=== PATIENT | female | born 1960 | race Caucasian/White ===

== ENCOUNTER 2016-07-24 17:08 | Emergency (ER) | payer BC ==
[2016-07-24 17:09] VITALS: BMI 31.2
[2016-07-24 17:24] VITALS: BP 130/83
[2016-07-24 17:50] VITALS: PULSE 79; RESP 16; TEMP 98.6; O2SAT 99
[2016-07-24] MEDS ORDERED: TDAP Vaccine 0.5 mL Syr IM ONE (18:12)
--- NOTE | 2016-07-24 18:16 | ED PDOC ---
Arrival/HPI - General Chief Complaint: Trauma Time Seen by Provider: 07/24/16 18:11 Historian: Patient - History of Present Illness Narrative History of Present Illness (Text): 07/24/16 18:13 This 55 yo female with pmh lupus, and arthritis presents to this ED c/o left ankle/foot pain x 2 hours. Patient stated while walking downstairs, she missed last steps causing her to twist her left ankle. Patient denies head injury loc, back pain, hip pain, knee pain, dizziness, rocha, diplopia, n/v, or cms. Patient was able to ambulate with mild pain. Time/Duration: 1-3 hours Context: Home Past Medical History - Provider Review Nursing Documentation Reviewed: Yes - Infectious Disease Hx of Infectious Diseases: None - Reproductive Menopause: Yes - Pulmonary Hx Respiratory Disorders: No - Neurological Hx Neurological Disorder: No - HEENT Hx HEENT Disorder: No Other/Comment: WEARS READING GLASSES - Renal Hx Renal Disorder: No - Endocrine/Metabolic Hx Endocrine Disorders: No - Hematological/Oncological Hx Blood Disorders: No - Integumentary Hx Dermatological Disorder: No - Musculoskeletal/Rheumatological Hx Musculoskeletal Disorders: Yes Hx Arthritis: Yes Hx Falls: No - Gastrointestinal Hx Gall Bladder Disease: Yes (CHOLECYSTECTOMY) Hx Gastroesophageal Reflux: Yes - Genitourinary/Gynecological Hx Hematuria: Yes Hx Urinary Tract Infection: Yes (08-20-12) - Psychiatric Hx Psychophysiologic Disorder: No Hx Depression: No Hx Emotional Abuse: No Hx Physical Abuse: No Hx Substance Use: No - Surgical History Hx Cholecystectomy: Yes - Anesthesia Hx Anesthesia: No - Suicidal Assessment Feels Threatened In Home Enviroment: No Family/Social History - Physician Review Nursing Documentation Reviewed: Yes Family/Social History: No Known Family HX Smoking Status: Never Smoked Hx Alcohol Use: No Hx Substance Use: No Allergies/Home Meds Allergies/Adverse Reactions: Allergies No Known Allergies Allergy (Verified 08/20/12 12:53) Home Medications: Home Meds Medication Instructions Recorded Confirmed Hydroxychloroquine Sulfate 200 mg PO BID 08/20/12 07/24/16 [Plaquenil] Review of Systems - Review of Systems Constitutional: Normal. absent: Fatigue, Weight Change, Fevers, Night Sweats Eyes: Normal ENT: Normal Respiratory: Normal Cardiovascular: Normal Gastrointestinal: Normal Genitourinary Female: Normal Musculoskeletal: Other (Left ankle and left foot pain) Skin: Normal Neurological: Normal Endocrine: Normal Hemo/Lymphatic: Normal Psychiatric: Normal Physical Exam Vital Signs Temp Pulse Resp BP Pulse Ox 07/24/16 17:49 98.6 F 79 16 99 07/24/16 17:19 98.5 F 72 18 130/83 100 Temperature: Afebrile Blood Pressure: Normal Pulse: Regular Respiratory Rate: Normal Appearance: Positive for: Well-Appearing, Non-Toxic, Comfortable Pain Distress: None Mental Status: Positive for: Alert and Oriented X 3 - Systems Exam Head: Present: Atraumatic, Normocephalic, Other (no raccoon sign. No aden sign) Pupils: Present: PERRL, Other (no hyphema) Extroacular Muscles: Present: EOMI. No: Entrapment Conjunctiva: Present: Normal Ears: Present: Normal, NORMAL TM, Normal Canal, Other (No hemotympanum). No: Erythema, TM Bulging, Fluid, TM Perf Mouth: Present: Moist Mucous Membranes Pharnyx: Present: Normal. No: ERYTHEMA, TONSILS ENLARGED Nose (External): Present: Atraumatic Nose (Internal): Present: Normal Inspection Neck: Present: Normal Range of Motion, Trachea Midline. No: Meningeal Signs, MIDLINE TENDERNESS Respiratory/Chest: Present: Clear to Auscultation, Good Air Exchange. No: Respiratory Distress, Accessory Muscle Use, Wheezes, Retracting, Tender to Palpation Cardiovascular: Present: Regular Rate and Rhythm, Normal S1, S2. No: Murmurs Abdomen: Present: Normal Bowel Sounds. No: Tenderness, Distention, Peritoneal Signs Back: Present: Normal Inspection. No: CVA Tenderness, Midline Tenderness, Paraspinal Tenderness, Pain with Leg Raise Upper Extremity: Present: Normal Inspection, Normal ROM, Neurovascularly Intact , Capillary Refill < 2s. No: Cyanosis, Edema Lower Extremity: Present: Normal Inspection, NORMAL PULSES, Tenderness ((+) mild tenderness just inferior to left lateral malleoulus. No ecchymosis, swelling, or deformity. Tompson test was negative. No calf tenderness.), Capillary Refill < 2 s. No: Edema, CALF TENDERNESS Neurological: Present: GCS=15, CN II-XII Intact, Speech Normal Skin: Present: Warm, Dry, Normal Color, Abrasion (Small linear abrasion right anterior distal lower leg.). No: Rashes Psychiatric: Present: Alert, Oriented x 3, Normal Insight, Normal Concentration Medical Decision Making ED Course and Treatment: 07/24/16 19:09 Re-evaluation. Patient feels better. Discussed results and plan with patient who expresses understanding. All questions answered and there is agreement with the plan to discharge home with instructions. Patient stable for discharge. Return if symptoms persist or worsen. Patient understand to remove air cast, krissy bandage at bedtime. To keep foot elevated, ice, and rest for at least 5-7 days. To return to emergency if symptoms worsen. Re-evaluation Time: 19:10 Reassessment Condition: Re-examined, Improved - RAD Interpretation Narrative RAD Interpretations (Text): 07/24/16 19:10 Foot x-rays: No Fx . DJD 07/24/16 19:11 Ankle x-rays: no fx DJD Radiology Orders: 07/24/16 18:11 ANKLE LEFT 3 VIEWS ROUTINE [RAD] Stat 07/24/16 18:12 FOOT LEFT 3 VIEWS ROUTINE [RAD] Stat - Medication Orders Current Medication Orders: Discontinued Medications Ibuprofen (Motrin Tab) 400 mg PO STAT STA Stop: 07/24/16 18:13 Last Admin: 07/24/16 19:13 Dose: 400 mg Tetanus/Reduced Diphtheria/Acell Pertussis (Boostrix Vaccine Inj) 0.5 ml IM .ONCE ONE Stop: 07/24/16 18:13 Last Admin: 07/24/16 19:12 Dose: 0.5 ml - Procedure PROCEDURE NOTE (Text): 07/24/16 21:14 I ordered air cast, cane and krissy bandage Disposition/Present on Arrival - Present on Arrival Any Indicators Present on Arrival: No History of DVT/PE: No History of Uncontrolled Diabetes: No Urinary Catheter: No History of Decub. Ulcer: No History Surgical Site Infection Following: None - Disposition Have Diagnosis and Disposition been Completed?: Yes Diagnosis: Foot pain, Ankle pain Disposition: HOME/ ROUTINE Disposition Time: 19:09 Patient Plan: Discharge Condition: GOOD Discharge Instructions (ExitCare): Foot Sprain (ED) Additional Instructions: Call private doctor for follow up visit in 1-2 days. Take medication as instructed. Return to emergency if symptoms worsen. Remove krissy bandage and air cast at bedtime Prescriptions: Naproxen [Naprosyn Tab] 375 mg PO BID #14 tab Referrals: Podiatry Clinic [Outside] - Follow up with primary
--- NOTE | 2016-07-25 08:29 | RAD ---
PROCEDURE: Left Foot Radiographs. HISTORY: pain COMPARISON: None. FINDINGS: BONES: No fracture 1st metatarsal head osseous hypertrophy present. An os peroneum borders the cuboid Posterior and inferior calcaneal spurring present JOINTS: First metatarsal-phalangeal joint space narrowing SOFT TISSUES: Minimal medial 1st metatarsal bordering soft tissue swelling -a bunion is a consideration OTHER FINDINGS: None. IMPRESSION: No cortical fracture appreciatedIf symptoms persist/warrant consider MRI.
--- NOTE | 2016-07-25 08:31 | RAD ---
PROCEDURE: Left Ankle Radiographs. HISTORY: pain COMPARISON: None FINDINGS: BONES: Normal. No fracture. JOINTS: Partially visualized is 1st metatarsal-phalangeal joint osteoarthrosis. Ankle mortise maintained. Talar dome intact SOFT TISSUES: Normal. OTHER FINDINGS: None. IMPRESSION: No fracture or dislocation seen.
== END 2016-07-24 19:46 | disposition home or self-care (01) ==
LOC: ED 17:08
DX: M25.572 Pain in left ankle and joints of left foot (principal); S93.602A Unspecified sprain of left foot, initial encounter; X50.0XXA Overexertion from strenuous movement or load, initial encounter; Y92.89 Other specified places as the place of occurrence of the external cause; Z23 Encounter for immunization